=== PATIENT | male | born 1990 | race Caucasian/White ===

== ENCOUNTER 2017-11-25 09:22 | Emergency (ER) | payer MEDICAID ==
[~2017-11-25] VITALS: Ht 188 cm; Wt 81.6 kg
[2017-11-25 09:30] VITALS: BP 108/69
[2017-11-25] MEDS ORDERED: cefTRIAXone SOD 1,000 MG VL IM ONE (10:30)
== END 2017-11-25 10:40 | disposition home or self-care (01) ==
LOC: ER 09:22
DX: J02.0 Streptococcal pharyngitis (principal)
CPT/HCPCS: 96372; 99283; J0696

== ENCOUNTER 2017-11-26 17:30 | Emergency (ER) | payer MEDICAID ==
[~2017-11-26] VITALS: Ht 188 cm; Wt 81.6 kg
[2017-11-26 17:54] VITALS: BP 112/72
[2017-11-26] MEDS ORDERED: PENICILLIN G BENZ 1200000 UNITS/2 ML SYRG IM ONE (22:45)
[2017-11-26] MEDS ORDERED: methylPREDNISolone SOD SUCC 125 MG/2 ML VL IM ONE (22:45)
[2017-11-26] MEDS ORDERED: ACETAMINOPHEN/CODEINE#3 (300/30mg) TAB PO ONE (23:30)
== END 2017-11-26 23:54 | disposition home or self-care (01) ==
LOC: ER 17:35
DX: J02.0 Streptococcal pharyngitis (principal); F17.210 Nicotine dependence, cigarettes, uncomplicated; Z88.1 Allergy status to other antibiotic agents
CPT/HCPCS: 96372; 99284; J0561; J2930

== ENCOUNTER 2022-08-16 07:36 | Emergency (ER) | payer MEDICAID ==
[~2022-08-16] VITALS: Ht 188 cm; Wt 90.0 kg
[2022-08-16 10:36] VITALS: BP 115/86
[2022-08-16] MEDS ORDERED: ACETAMINOPHEN 500 MG TAB PO ONE (10:45)
== END 2022-08-16 10:51 | disposition home or self-care (01) ==
LOC: ER 07:36
DX: S63.502A Unspecified sprain of left wrist, initial encounter (principal); F17.210 Nicotine dependence, cigarettes, uncomplicated; Z88.1 Allergy status to other antibiotic agents; W18.39XA Other fall on same level, initial encounter; Y93.89 Activity, other specified; Y92.89 Other specified places as the place of occurrence of the external cause; Y99.8 Other external cause status
CPT/HCPCS: 73110